=== PATIENT | female | born 1995 | race Caucasian/White ===

== ENCOUNTER 2020-11-02 13:03 | Emergency (ER) | payer MEDICAID ==
[~2020-11-02] VITALS: Ht 167.6 cm; Wt 72.0 kg
[2020-11-02] MEDS ORDERED: LIDOCAINE HCL/EPINEPHRINE 1%-EPI 1:100,000 50 ML VIAL INFIL ONE (14:15)
[2020-11-02] MEDS: LIDOCAINE HCL/EPINEPHRINE 1%-EPI 1:100,000 10 ML VIAL INFIL NR (14:38)
[2020-11-02 15:18] LABS: CLARITY URINE TURBID (CLEAR); COLOR URINE YELLOW (YELLOW); KETONES URINE NEGATIVE (NEGATIVE); LEUKOCYTE ESTERASE URINE 2+ (NEGATIVE); NITRITE URINE NEGATIVE (NEGATIVE); OCCULT BLOOD URINE NEGATIVE (NEGATIVE); PROTEIN URINE TRACE (NEGATIVE); SPECIFIC GRAVITY URINE 1.025 (1.005-1.030); UROBILINOGEN URINE 0.2 E.U./dL (0.2-1.0)
[2020-11-02 15:19] VITALS: BP 117/58
[2020-11-02] MEDS: KETOROLAC 30MG/ML VIAL IM ONE (15:19)
[2020-11-02] MEDS ORDERED: DOXY100C2 MT (15:51)
[2020-11-02] MEDS: CEFTRIAXONE SODIUM 500 MG/VIAL IM ONE (16:11)
== END 2020-11-02 16:21 | disposition home or self-care (01) ==
LOC: ER 13:03
DX: L02.414 Cutaneous abscess of left upper limb (principal); F14.10 Cocaine abuse, uncomplicated; F15.10 Other stimulant abuse, uncomplicated
CPT/HCPCS: 10060; 81003; 87086; 96372; 99284; J0696; J1885; J3490; Z7610